=== PATIENT | male | born 1935 | race Caucasian/White ===

== ENCOUNTER → 2017-01-26 | Day surgery (SDC) | payer OTHER, BC, MEDICARE ==
[~2017-01-26] VITALS: Ht 177.8 cm; Wt 95.3 kg
[~2017-01-26] MED LIST: HYDRALAZINE HCL25 M1 PO; HYDRODIURIL 2525 MG PO; LOSARTAN POTAS100 MG PO; PRADAXA150 M1 PO; PRAVASTATIN SOD40 MG PO
--- NOTE | 2017-01-26 09:39 | Operative Report ---
Operative/Inv Procedure Report Surgery Date: 01/26/17 Name of Procedure: Right endoscopic carpal tunnel release Pre-Operative Diagnosis: Right carpal tunnel syndrome Post-Operative Diagnosis: Same Estimated Blood Loss: scant Surgeon/Iron Handler: ELISE BECERRA MD Anesthesia: moderate sedation Drains: None Specimens: None Tourniquet: 11 minutes Complications: None Operative Indication: The patient had signs symptoms electrodiagnostic evidence of right carpal tunnel syndrome and elected to undergo right endoscopic carpal tunnel release. Operative/Procedure Note Note: Procedure in detail: After informed consent was obtained the patient was taken to the operating room placed on the operative table in supine position with the right arm abducted on the arm table. After satisfactory sedation a well-padded tourniquet was placed around the right upper arm. A median nerve block was then administered in the distal volar forearm using a [id number] mixture of 0.5% plain Marcaine and 2% plain Xylocaine. A small amount of local anesthesia was also administered subcutaneously at the volar wrist. The arm was prepped and draped in usual sterile fashion. Usual surface landmarks were identified. A small transverse skin incision line was drawn at the volar wrist parallel and proximal to the distal wrist flexion crease. The arm was exsanguinated with an Esmarch bandage and the tourniquet was inflated to 250 mmHg. Tourniquet time was 11 minutes. A #15 scalpel blade was used to make the skin incision at the volar wrist. The underlying soft tissues were gently spread with tenotomy scissors and 2 Ragnell retractors thereby revealing the underlying antebrachial fascia. Then using a scissors a distally based U-shaped fascial flap was created and held in place with a small double hook. The synovial elevator was then inserted into the carpal canal to clear adhesions from the undersurface of the transverse carpal ligament. His was followed by insertion of the serial carpal tunnel dilator hamate finders. Finally the MicroAire Jessy endoscopic device was inserted into the carpal canal in line with the fourth metacarpal ray. The distal border of the transverse carpal ligament was identified as was the distal fat pad. The blade was engaged and several passes were made through the overlying ligament. Care was taken to ensure that the distal border of the ligament was completely divided. The endoscope was removed and the proximal remaining portion of the ligament was divided under direct vision with a scissors. The fascial flap was then excised and discarded. Then working in retrograde fashion from distal to proximal the antebrachial fascia in the wrist was divided with the scissors on the ulnar side of the wrist. 0.5% plain Marcaine was then infiltrated around the wound subcutaneously and instilled topically directly on the nerve. Attention was then turned to closure. The dermis was closed using interrupted inverted 5-0 Monocryl suture. The skin was reapproximated with Mastisol and Steri-Strips. A dry sterile gauze dressing was then applied. The patient tolerated the procedure well and was taken to recovery room in stable condition.
--- NOTE | 2017-01-26 09:44 | Operative Report ---
Operative/Inv Procedure Report Surgery Date: 01/26/17 Name of Procedure: Right endoscopic carpal tunnel release Pre-Operative Diagnosis: Right carpal tunnel syndrome Post-Operative Diagnosis: Same Estimated Blood Loss: scant Surgeon/Refrigeration Installer: ELISE BECERRA MD Anesthesia: moderate sedation Drains: None Specimens: None Microbiology: None Tourniquet: 11 minutes Complications: None Operative Indication: The patient had signs symptoms and electrodiagnostic evidence of right carpal tunnel syndrome and elected to undergo surgery. He provided informed consent. Operative/Procedure Note Note: Procedure in detail: After informed consent was obtained the patient was taken to the operating room placed on the operative table in supine position with the right arm abducted on the arm table. After satisfactory sedation a well-padded tourniquet was placed around the right upper arm. A median nerve block was then administered in the distal volar forearm using a [id number] mixture of 0.5% plain Marcaine and 2% plain Xylocaine. A small amount of local anesthesia was also administered subcutaneously at the volar wrist. The arm was prepped and draped in usual sterile fashion. Usual surface landmarks were identified. A small transverse skin incision line was drawn at the volar wrist parallel and proximal to the distal wrist flexion crease. The arm was exsanguinated with an Esmarch bandage and the tourniquet was inflated to 250 mmHg. Tourniquet time was 11 minutes. A #15 scalpel blade was used to make the skin incision at the volar wrist. The underlying soft tissues were gently spread with tenotomy scissors and 2 Ragnell retractors thereby revealing the underlying antebrachial fascia. Then using a scissors a distally based U-shaped fascial flap was created and held in place with a small double hook. The synovial elevator was then inserted into the carpal canal to clear adhesions from the undersurface of the transverse carpal ligament. His was followed by insertion of the serial carpal tunnel dilator hamate finders. Finally the MicroAire Jessy endoscopic device was inserted into the carpal canal in line with the fourth metacarpal ray. The distal border of the transverse carpal ligament was identified as was the distal fat pad. The blade was engaged and several passes were made through the overlying ligament. Care was taken to ensure that the distal border of the ligament was completely divided. The endoscope was removed and the proximal remaining portion of the ligament was divided under direct vision with a scissors. The fascial flap was then excised and discarded. Then working in retrograde fashion from distal to proximal the antebrachial fascia in the wrist was divided with the scissors on the ulnar side of the wrist. 0.5% plain Marcaine was then infiltrated around the wound subcutaneously and instilled topically directly on the nerve. Attention was then turned to closure. The dermis was closed using interrupted inverted 5-0 Monocryl suture. The skin was reapproximated with Mastisol and Steri-Strips. A dry sterile gauze dressing was then applied. The patient tolerated the procedure well and was taken to recovery room in stable condition.
== END ==
LOC: STS 03:57
DX: G56.01 Carpal tunnel syndrome, right upper limb (principal); I10 Essential (primary) hypertension; I48.91 Unspecified atrial fibrillation; Z79.01 Long term (current) use of anticoagulants; I25.2 Old myocardial infarction; I25.10 Atherosclerotic heart disease of native coronary artery without angina pectoris
CPT/HCPCS: J2001